=== PATIENT | female | born 1950 | race Caucasian/White ===

== ENCOUNTER → 2021-06-03 15:14 | Outpatient (CLI) | payer MEDICARE, SELFPAY | PROVIDERS: Visit Provider Physician Assistant | DX: L02.91 Cutaneous abscess, unspecified (principal) | CPT/HCPCS: 87070; 87075; 87077; 87147; 87186; 87205 ==

== ENCOUNTER 2022-08-26 12:41 | Emergency (ER) | payer OTHER, SELFPAY ==
[2022-08-26] VITALS (12 sets, daily range): BP systolic 130–207; BP diastolic 72–98; PULSE 18–82; RESP 12–98; TEMP 37; O2SAT 95–98; BMI 25.8
--- NOTE | 2022-08-26 13:08 | DI.CT.S_ITS ---
PROCEDURE: CT HEAD/BRAIN WO CON INDICATIONS: severe HTN and weakness TECHNIQUE: Noncontrast 4.5 mm thick angled axial sections acquired from the foramen magnum to the vertex, with coronal and sagittal reformats. For radiation dose reduction, the following was used: automated exposure control, adjustment of mA and/or kV according to patient size. COMPARISON: [facility], CR, XR CHEST 1V, 08/26/2022, 13:23. [facility], CT, CT ANGIO CHEST ABDOMEN PELVIS, 08/26/2022, 13:15. FINDINGS: Image quality: Excellent. CSF spaces: Basal cisterns are patent. No extra-axial fluid collections. The ventricles are symmetric in size and shape. Brain: No intracranial bleeds or masses. There is cerebral volume loss for age, with resultant ventricular and sulcal prominence. There are periventricular and deep white matter chronic small vessel ischemic changes. There is intracranial internal carotid artery atherosclerosis. Skull and face: Calvarium and visualized facial bones appear intact, without suspicious lesions. Sinuses: Visualized sinuses and mastoids are clear. IMPRESSION: Noncontrast head CT within normal limits for age. Dictated by: Martinez Anguiano M.D. on 08/26/2022 at 12:53 Approved by: Martinez Anguiano M.D. on 08/26/2022 at 12:55
--- NOTE | 2022-08-26 13:08 | DI.CT.S_ITS ---
PROCEDURE: CT ANGIO CHEST ABDOMEN PELVIS INDICATIONS: chest pain and HTN TECHNIQUE: Precontrast 5 mm thick sections acquired from the lung apices to the iliac crests. After the administration of intravenous contrast, 2.5 mm thick sections again acquired from the lung apices to the iliac crests. Maximum intensity projection (MIP) oblique sagittal and coronal reformats were then acquired. For radiation dose reduction, the following was used: automated exposure control. COMPARISON: None. FINDINGS: Image quality: Excellent. AORTA: No acute aortic syndrome. No aortic dissection. Ascending aorta measures 3.4 cm. No pulmonary embolism. CHEST: Lungs and pleura: Right middle lobe pulmonary nodule measuring 0.8 x 0.5 cm, (4/236). Left lower lobe calcified granuloma. Minimal atelectasis or scarring. No consolidation. Airways are clear. No pleural effusions or pneumothorax. Mediastinum: Heart size is normal. No pericardial effusion. No mediastinal or hilar adenopathy by size criteria. Central pulmonary arteries are normal in size. Trace fluid in the distal esophagus. Esophagus is normal in caliber. No hiatal hernias. Bones and chest wall: No axillary adenopathy by size criteria. Tiny left thyroid nodule. No suspicious bony lesions. Prior left-sided rib fractures. No vertebral body compression fractures. ABDOMEN: Vasculature: Celiac trunk and mesenteric arteries are patent. Renal arteries are also patent. Solid organs: Liver is normal in size. Hypodensity in the right lobe of the liver measuring 1.5 x 1.1 cm, (3/164). Gallbladder is unremarkable. Biliary system is non dilated. Pancreas enhances normally. Spleen is normal in size and enhancement. No adrenal nodules. Both kidneys are normal in size and enhancement, without hydronephrosis. Nonobstructing left kidney stone measuring 0.4 cm. Peritoneum and bowel: No free fluid or air. Bowel loops are normal in caliber and wall thickness. Diverticulosis. Normal appendix. Nodes and vessels: No retroperitoneal or mesenteric adenopathy by size criteria. Inferior vena cava is normal in morphology. Miscellaneous: No ventral hernias. PELVIS: Genitourinary: Bladder wall thickness is normal. No stone. Anteverted uterus. Miscellaneous: No inguinal hernias or adenopathy. No ventral hernias. Bones: No suspicious bony lesions. No vertebral body compression fractures. IMPRESSION: 1. No aortic dissection. No pulmonary embolism. 2. No acute airspace opacity. Right middle lobe pulmonary nodule measuring 0.7 cm mean diameter. 3. Indeterminate hypodensity at the dome of the liver. This could be further characterized with a liver MRI with IV contrast. 4. No small bowel obstruction. No free fluid. 5. Diverticulosis. Small nonobstructing left kidney stone. Dictated by: Kavin Gallagher M.D. on 08/26/2022 at 14:06 Approved by: Kavin Gallagher M.D. on 08/26/2022 at 14:19
--- NOTE | 2022-08-26 13:08 | DI.RAD.S_ITS ---
PROCEDURE: XR CHEST 1V INDICATIONS: chest pain TECHNIQUE: One view of the chest was acquired. COMPARISON: [facility], CT, CT HEAD/BRAIN WO CON, 08/26/2022, 13:15. [facility], CT, CT ANGIO CHEST ABDOMEN PELVIS, 08/26/2022, 13:15. FINDINGS: Surgical changes and devices: None. Lungs and pleura: Lungs are clear. No pleural effusions or pneumothorax. Mediastinum: Mediastinal contours appear normal. Heart size is normal. Bones and chest wall: No suspicious bony lesions. Overlying soft tissues appear unremarkable. IMPRESSION: Unremarkable portable chest. Dictated by: Martinez Anguiano M.D. on 08/26/2022 at 12:57 Approved by: Martinez Anguiano M.D. on 08/26/2022 at 12:58
[2022-08-26 13:52] LABS: Add Manual Diff / Slide Review NO; Basophils Absolute Auto 0 /uL (0-100); Basophils Percent Auto 0.7 % (0-2); Eosinophils Absolute Auto 100 /uL (0-450); Eosinophils Percent Auto 1.6 % (2-4); Hematocrit 44.2 % (36-46); Hemoglobin 14.7 g/dL (12.0-16.0); Lymphocytes Absolute Auto 1800 /uL (1100-4500); Lymphocytes Percent Auto 24.2 % (25-40); Mean Corpuscular HGB Conc 33.2 % (30-36); Mean Corpuscular Hemoglobin 32.5 PG (26-34); Monocytes Absolute Auto 700 /uL (0-900); Monocytes Percent Auto 9.1 % (3-14); Neutrophils Absolute Auto 4800 /uL (1500-7000); Neutrophils Percent Auto 64.4 % (50-75); Platelet Count 265 X10^3/uL (150-400); Red Blood Cell Count 4.52 X10^6/uL (4.0-5.2); Red Cell Distribution Width 13.9 % (11.6-14.8); White Blood Cell Count 7.5 X10^3/uL (4.5-11.0)
[2022-08-26 14:09] LABS: Prothrombin Time 11.9 SECONDS (10.1-12.7)
--- NOTE | 2022-08-26 14:11 | ED_ITS ---
HPI - Chest Pain General Chief Complaint: Chest Pain Stated Complaint: chest pain/weak Time Seen by Provider: 08/26/22 12:58 Source: patient Mode of arrival: Ambulatory Limitations: no limitations History of Present Illness HPI narrative: Patient is a 72-year-old female with history of hyperlipidemia presenting today with chest discomfort and weakness. She says she had chest discomfort that woke her from her sleep this morning. It radiated all up and down her sternum of. He went through to her back. She could not get quite comfortable. She then got up and felt like her legs were extremely weak. She has been lightheaded overall not feeling great this morning. She denies any shortness of breath with ex ertion. She denies chest pain with exertion. She feels like her chest discomfort is gone now no overall just feels weak. She has no numbness or tingling. No abdominal pain nausea vomiting or fevers. She is noted to be extremely hypertensive with a systolic in the 200 she is not taking any blood pressure medications and has never had a problem hypertension in the past. Related Data Allergies Allergy/AdvReac Type Severity Reaction Status Date / Time No Known Drug Allergies Allergy Verified 08/26/22 13:05 Review of Systems Review of Systems Narrative: GENERAL: Denies chills, fatigue, malaise, fever, sweats, travel HEENT: Denies sinus pain, ear pain, sore throat, difficulty swallowing, neck pain RESPIRATORY: Denies dyspnea, cough, wheezing, hemoptysis, sputum. CARDIOVASCULAR: See HPI GASTROINTESTINAL: Denies nausea, vomiting, abdominal pain, diarrhea, constipation, melena. : Denies dysuria, frequency, incontinence, hematuria, urinary retention, flank pain. MUSCULOSKELETAL: Denies weakness, joint pain, or bony pain SKIN: No rash, no erythema, no pruritus NEUROLOGIC: Denies weakness, dizziness, headache, numbness, change in speech, confusion PSYCHIATRIC: No concerning psychosocial issues. 12 point review of systems is negative except for those stated above and HPI Patient History Social History Smoking Status: Never smoker Smoking Status: Never smoker alcohol intake frequency: 0-2 drinks per day Substance Use Type: does not use Exam Initial Vital Signs Initial Vital Signs: Vital Signs Pulse Rate 74 08/26/22 12:54 Respiratory Rate 14 08/26/22 12:54 Pulse Oximetry 98 08/26/22 12:54 GENERAL: Alert pleasant 72-year-old female and in no acute distress. HEENT: Head atraumatic,EOMI, pupils reactive, face symmetric, moist mucous membranes CARDIOVASCULAR: Regular rate and rhythm without murmurs, rubs or gallops. RESPIRATORY: Breath sounds equal bilaterally, no wheezes rales or rhonchi. ABDOMEN: Soft, nontender. Normoactive bowel sounds all 4 quadrants. No guarding or rebound. EXTREMITIES: Normal range of motion, no clubbing or edema. Neurovascularly intact NEUROLOGICAL: Alert and oriented x4.Normal gait and speech. Technology Analyst strength equal bilaterally good [id number] bilaterally good [id number] no drift in any extremities face is symmetric sensation and extremities to light touch is equal bilaterally no facial droop SKIN: Warm, dry, no laceration, no petechiae, no rashes or lesions. Course Orders Ordered: ED Orders 08/26/22 13:02 EKG-12 Lead Stat 08/26/22 13:08 CT angio chest abdomen pelvis Stat CT head/brain wo con Stat XR chest 1V Stat 08/26/22 13:40 Complete Blood Count AUTO DIFF Stat Comprehensive Metabolic Panel Stat Lipase Stat NT-proBNP (BNP-Adult 18+) Stat Partial Thromboplastin Time Stat Prothrombin Time INR Stat Troponin & CK Cardiac Panel Stat 08/26/22 15:05 Trop I [Troponin I] Stat 08/26/22 15:16 Urine Culture Stat Urine Microscopic Stat Discontinued Medications Labetalol HCl (Labetalol 20 Mg/4 Ml Syringe) 10 mg IV NOW ONE Stop: 08/26/22 14:39 Vital Signs Vital signs: Vital Signs - 8 hr 08/26/22 13:00 08/26/22 12:54 08/26/22 13:00 Temperature 98.6 F Pulse Rate 18 L 74 74 Respiratory Rate 98 H 14 16 Blood Pressure 202/98 H Pulse Oximetry 98 98 97 Oxygen Delivery Method Room Air 08/26/22 13:06 08/26/22 13:06 08/26/22 13:37 Temperature Pulse Rate 81 82 Respiratory Rate 24 18 Blood Pressure 207/98 H Pulse Oximetry 97 98 Oxygen Delivery Method 08/26/22 14:00 08/26/22 14:38 08/26/22 14:39 Temperature Pulse Rate 66 69 Respiratory Rate 14 Blood Pressure 172/83 H Pulse Oximetry 98 96 Oxygen Delivery Method 08/26/22 14:39 08/26/22 14:40 08/26/22 14:40 Temperature Pulse Rate 68 74 Respiratory Rate 14 17 Blood Pressure 182/88 H Pulse Oximetry 97 97 Oxygen Delivery Method 08/26/22 15:00 08/26/22 15:00 08/26/22 15:01 Temperature Pulse Rate 65 Respiratory Rate 12 Blood Pressure 152/74 H 157/74 H Pulse Oximetry 97 Oxygen Delivery Method 08/26/22 15:01 08/26/22 15:20 08/26/22 15:20 Temperature Pulse Rate 66 66 Respiratory Rate 16 14 Blood Pressure 144/79 H Pulse Oximetry 97 96 Oxygen Delivery Method 08/26/22 16:25 Temperature Pulse Rate 68 Respiratory Rate 18 Blood Pressure 130/72 Pulse Oximetry 95 Oxygen Delivery Method Room Air MDM - Chest Pain Lab Data Result diagrams: 08/26/22 13:40 08/26/22 13:40 Labs: Lab Results 08/26/22 08/26/22 08/26/22 Range/Units 13:40 13:40 13:40 WBC 7.5 (4.5-11.0) X10^3/uL RBC 4.52 (4.0-5.2) X10^6/uL Hgb 14.7 (12.0-16.0) g/dL Hct 44.2 (36-46) % MCV 98.0 (80-100) fL MCH 32.5 (26-34) PG MCHC 33.2 (30-36) % RDW 13.9 (11.6-14.8) % Plt Count 265 (150-400) X10^3/uL Neut % (Auto) 64.4 (50-75) % Lymph % (Auto) 24.2 L (25-40) % Barnes % (Auto) 9.1 (3-14) % Eos % (Auto) 1.6 L (2-4) % Baso % (Auto) 0.7 (0-2) % Neut # (Auto) 4800 (3902-0784) /uL Lymph # (Auto) 1800 (3060-8733) /uL Barnes # (Auto) 700 (0-900) /uL Eos # (Auto) 100 (0-450) /uL Baso # (Auto) 0 (0-100) /uL PT 11.9 (10.1-12.7) SECONDS INR 1.0 (0.9-1.3) APTT 28 (26-36) SECONDS Sodium 136 L (137-145) mmol/L Potassium 4.0 (3.4-5.1) mmol/L Chloride 99 (98-107) mmol/L Carbon Dioxide 31 (22-32) mmol/L BUN 13 (7-17) mg/dL Creatinine 0.72 (0.52-1.04) mg/dL Estimated GFR > 60 (>60) mL/min BUN/Creatinine Ratio 18.1 (6-22) Glucose 93 (80-110) mg/dL Calcium 9.8 (8.4-10.2) mg/dL Total Bilirubin 0.6 (0.2-1.3) mg/dL AST 27 (14-36) IU/L ALT 22 (<35) IU/L Alkaline Phosphatase 55 (38-126) U/L Total Creatine Kinase 36 (30-135) U/L CK-MB (CK-2) TNP CK-MB (CK-2) Rel Index TNP Troponin I < 0.012 (0.01-0.034) ng/mL NT-Pro-B Natriuret Pep 143 H (<125) pg/mL Total Protein 6.7 (6.3-8.2) g/dL Albumin 3.9 (3.5-5.0) g/dL Globulin 2.8 (1.7-4.1) g/dL Albumin/Globulin Ratio 1.4 (1.0-2.8) Lipase 72 (23-300) U/L Urine RBC (0-5/HPF) Urine WBC (0-5/HPF) Amorphous Sediment Urine Bacteria (None) Ur Culture Indicated? 08/26/22 08/26/22 Range/Units 15:05 15:16 WBC (4.5-11.0) X10^3/uL RBC (4.0-5.2) X10^6/uL Hgb (12.0-16.0) g/dL Hct (36-46) % MCV (80-100) fL MCH (26-34) PG MCHC (30-36) % RDW (11.6-14.8) % Plt Count (150-400) X10^3/uL Neut % (Auto) (50-75) % Lymph % (Auto) (25-40) % Barnes % (Auto) (3-14) % Eos % (Auto) (2-4) % Baso % (Auto) (0-2) % Neut # (Auto) (0882-4864) /uL Lymph # (Auto) (7779-9987) /uL Barnes # (Auto) (0-900) /uL Eos # (Auto) (0-450) /uL Baso # (Auto) (0-100) /uL PT (10.1-12.7) SECONDS INR (0.9-1.3) APTT (26-36) SECONDS Sodium (137-145) mmol/L Potassium (3.4-5.1) mmol/L Chloride (98-107) mmol/L Carbon Dioxide (22-32) mmol/L BUN (7-17) mg/dL Creatinine (0.52-1.04) mg/dL Estimated GFR (>60) mL/min BUN/Creatinine Ratio (6-22) Glucose (80-110) mg/dL Calcium (8.4-10.2) mg/dL Total Bilirubin (0.2-1.3) mg/dL AST (14-36) IU/L ALT (<35) IU/L Alkaline Phosphatase (38-126) U/L Total Creatine Kinase (30-135) U/L CK-MB (CK-2) CK-MB (CK-2) Rel Index Troponin I < 0.012 (0.01-0.034) ng/mL NT-Pro-B Natriuret Pep (<125) pg/mL Total Protein (6.3-8.2) g/dL Albumin (3.5-5.0) g/dL Globulin (1.7-4.1) g/dL Albumin/Globulin Ratio (1.0-2.8) Lipase (23-300) U/L Urine RBC 0-1/hpf (0-5/HPF) Urine WBC None seen (0-5/HPF) Amorphous Sediment 2+ Urine Bacteria None seen (None) Ur Culture Indicated? Culture not indicate Urine Dip Bedside Urine Glucose Negative Bedside Urine Bilirubin - Negative Bedside Urine Ketone - Negative Urine Specific Jackpot 1.010 Bedside Urine Occult Blood +/- Bedside Urine pH 8.0 Bedside Urine Protein - Negative Bedside Urine Urobilinogen - Negative Bedside Urine Nitrite - Negative Bedside Urine Leukocytes - Negative Esterase Imaging Data CT scan - head: Radiologist's Impression: : Apolonia Carr MR#: [id number] : 1950 Acct:[id number] Age/Sex: 72 / F Date of Service: 08/26/22 Loc: ED Accession Number: [id number] ?? Procedure: CT head/brain wo con Ordering Provider: Ruma Rosenthal D.O. PROCEDURE:? CT HEAD/BRAIN WO CON ? INDICATIONS:? severe HTN and weakness ? TECHNIQUE:? Noncontrast 4.5 mm thick angled axial sections acquired from the foramen magnum to the vertex, with coronal and sagittal reformats.? For radiation dose reduction, the following was used:? automated exposure control, adjustment of mA and/or kV according to patient size.? ? COMPARISON:? [facility], CR, XR CHEST 1V, 08/26/2022, 13:23.? [facility], CT, CT ANGIO CHEST ABDOMEN PELVIS, 08/26/2022, 13:15. ? FINDINGS:? Image quality:? Excellent.? ? CSF spaces:? Basal cisterns are patent.? No extra-axial fluid collections.? The ventricles are symmetric in size and shape.? ? Brain:? No intracranial bleeds or masses.? There is cerebral volume loss for age, with resultant ventricular and sulcal prominence.? There are periventricular and deep white matter chronic small vessel ischemic changes.? There is intracranial internal carotid artery atherosclerosis.? ? Skull and face:? Calvarium and visualized facial bones appear intact, without suspicious lesions.? ? Sinuses:? Visualized sinuses and mastoids are clear.? ? ? IMPRESSION:? Noncontrast head CT within normal limits for age. ? ? Dictated by: Martinez Anguiano M.D. on 08/26/2022 at 12:53 ?? CT scan - abdomen/pelvis: Radiologist's Impression: Apolonia Carr MR#: [id number] : 1950 Acct:[id number] Age/Sex: 72 / F Date of Service: 08/26/22 Loc: ED Accession Number: [id number] ?? Procedure: CT angio chest abdomen pelvis Ordering Provider: Ruma Rosenthal D.O. PROCEDURE:? CT ANGIO CHEST ABDOMEN PELVIS ? INDICATIONS:? chest pain and HTN ? TECHNIQUE:? Precontrast 5 mm thick sections acquired from the lung apices to the iliac crests.? After the administration of intravenous contrast, 2.5 mm thick sections again acquired from the lung apices to the iliac crests.? Maximum intensity projection (MIP) oblique sagittal and coronal reformats were then acquired.? For radiation dose reduction, the following was used:? automated exposure control.? ? COMPARISON:? None. ? FINDINGS:? Image quality:? Excellent.? ? AORTA:? No acute aortic syndrome.? No aortic dissection.? Ascending aorta measures 3.4 cm. ? No pulmonary embolism.? ? CHEST:? Lungs and pleura:? Right middle lobe pulmonary nodule measuring 0.8 x 0.5 cm, (4/236).? Left lower lobe calcified granuloma.? Minimal atelectasis or scarring.? No consolidation. ?Airways are clear.? No pleural effusions or pneumothorax.? Mediastinum:? Heart size is normal.? No pericardial effusion.? No mediastinal or hilar adenopathy by size criteria.? Central pulmonary arteries are normal in size.? Trace fluid in the distal esophagus.? Esophagus is normal in caliber.? No hiatal hernias.? ? Bones and chest wall:? No axillary adenopathy by size criteria.? Tiny left thyroid nodule.? No suspicious bony lesions.? Prior left-sided rib fractures.? No vertebral body compression fractures.? ? ? ABDOMEN:? Vasculature:? Celiac trunk and mesenteric arteries are patent.? Renal arteries are also patent.? ? Solid organs:? Liver is normal in size.? Hypodensity in the right lobe of the liver measuring 1.5 x 1.1 cm, (3/164).? Gallbladder is unremarkable.? Biliary system is non dilated.? Pancreas enhances normally.? Spleen is normal in size and enhancement.? No adrenal nodules.? Both kidneys are normal in size and enhancement, without hydronephrosis.? Nonobstructing left kidney stone measuring 0.4 cm.? ? Peritoneum and bowel:? No free fluid or air.? Bowel loops are normal in caliber and wall thickness.? Diverticulosis.? Normal appendix.? ? Nodes and vessels:? No retroperitoneal or mesenteric adenopathy by size criteria.? Inferior vena cava is normal in morphology.? ? Miscellaneous:? No ventral hernias.? ? ? PELVIS:? Genitourinary:? Bladder wall thickness is normal.? No stone.? Anteverted uterus.? ? Miscellaneous:? No inguinal hernias or adenopathy.? No ventral hernias.? ? Bones:? No suspicious bony lesions.? No vertebral body compression fractures.? ? ? IMPRESSION:? 1. No aortic dissection.? No pulmonary embolism. ? 2. No acute airspace opacity.? Right middle lobe pulmonary nodule measuring 0.7 cm mean diameter. ? 3. Indeterminate hypodensity at the dome of the liver.? This could be further characterized with a liver MRI with IV contrast. ? 4. No small bowel obstruction.? No free fluid. ? 5. Diverticulosis.? Small nonobstructing left kidney stone.? Dictated by: Kavin Gallagher M.D. on 08/26/2022 at 14:06 ? ? Approved by: Kavin Gallagher M.D. on 08/26/2022 at 14:19 ? Chest x-ray: Radiologist's Impression: tient: Apolonia Carr MR#: [id number] : 1950 Acct:[id number] Age/Sex: 72 / F Date of Service: 08/26/22 Loc: ED Accession Number: [id number] ?? Procedure: XR chest 1V Ordering Provider: Ruma Rosenthal D.O. PROCEDURE:? XR CHEST 1V ? INDICATIONS:? chest pain ? TECHNIQUE:? One view of the chest was acquired.? ? COMPARISON:? [facility], CT, CT HEAD/BRAIN WO CON, 08/26/2022, 13:15.? [facility], CT, CT ANGIO CHEST ABDOMEN PELVIS, 08/26/2022, 13:15. ? FINDINGS:? ? Surgical changes and devices:? None.? ? Lungs and pleura:? Lungs are clear.? No pleural effusions or pneumothorax.? ? Mediastinum:? Mediastinal contours appear normal.? Heart size is normal.? ? Bones and chest wall:? No suspicious bony lesions.? Overlying soft tissues appear unremarkable.? ? ? IMPRESSION:? ? Unremarkable portable chest. ? ? Dictated by: Martinez Anguiano M.D. on 08/26/2022 at 12:57 ? ? Approved by: Martinez Anguiano M.D. on 08/26/2022 at 12:58 ECG Data Interpretation: Normal sinus rhythm rate 80 p.r. interval 144 QRS [address] changes or T- wave inversions, no priors MDM Narrative Medical decision making narrative: Patient initially comes in with weakness chest pain and severe hypertension. CT angio did not show any dissection all blood work does not show any sign of end- organ damage. She has 2- troponins she has not had any recurrence of chest discomfort. Her blood pressure has come down to 144/79 without any intervention. She has no sign of infection. At this time no indication for admission. I do recommend that she took her blood pressure at. She has a low risk heart score. She is noted have some PVCs on the monitor but likely causing any of her pain. Discharge Plan Departure Patient Disposition: Home Clinical Impression: Atypical chest pain, Asymptomatic PVCs Instructions: DI for Atypical Chest Pain Activity Restrictions/Additional Instructions: *You have been diagnosed with atypical chest *What to do: At this time blood work is overall reassuring. He may require further cardiac testing such as stress test and/or echocardiogram up discussed this with her primary care provider. Please monitor your blood pressure at home check once a day and record. You may need blood pressure medications. *Continue to take medications as directed *Follow up with your primary care provider in 2-3 days or call [phone] *Return to ER if you should have increasing chest pain weakness numbness tingling facial droop difficulty speaking visual changes or any new, worsening or concerning symptoms Referrals: Carline Haro ARNP [Primary Care Provider] - Visit Report Forms: Patient Portal/API
[2022-08-26 14:12] LABS: PTT Partial Thromboplastin Tim 28 SECONDS (26-36)
[2022-08-26 14:14] LABS: Alanine Aminotransferase 22 IU/L (<35); Albumin 3.9 g/dL (3.5-5.0); Albumin Globulin Ratio 1.4 (1.0-2.8); Alkaline Phosphatase 55 U/L (38-126); Aspartate Aminotransferase 27 IU/L (14-36); BUN Creatinine Ratio 18.1 (6-22); Bilirubin Total 0.6 mg/dL (0.2-1.3); Blood Urea Nitrogen 13 mg/dL (7-17); Calcium 9.8 mg/dL (8.4-10.2); Carbon Dioxide 31 mmol/L (22-32); Chloride 99 mmol/L (98-107); Creatine Kinase 36 U/L (30-135); Estimated Glomerular Filt Rate > 60 mL/min (>60); Globulin 2.8 g/dL (1.7-4.1); Glucose 93 mg/dL (80-110); HEMOLYSIS < 15 (0-50); Lipase 72 U/L (23-300); Sodium 136 mmol/L (137-145); Total Protein 6.7 g/dL (6.3-8.2)
[2022-08-26 14:25] LABS: NT-proBNP (BNP-Adult 18+) 143 pg/mL (<125); Troponin I < 0.012 ng/mL (0.01-0.034)
[2022-08-26 15:28] LABS: Amorphous Sediment Urine 2+; Bacteria Urine None Seen; RBC Urine 0-1/HPF (0-5/HPF); WBC Urine None Seen (0-5/HPF)
[2022-08-26 15:37] LABS: Troponin I < 0.012 ng/mL (0.01-0.034)
== END 2022-08-26 16:25 | disposition home or self-care (01) ==
PROVIDERS: Emergency Provider Emergency Medicine; PCP Nurse Practitioner Family
DX: R07.89 Other chest pain (principal); I49.3 Ventricular premature depolarization
CPT/HCPCS: 36415; 70450; 71045; 71275; 74174; 80053; 81003; 81015; 82550; 83690; 83880; 84484; 85025; 85610; 85730; 87086; 93005; 93010; 99283; 99284; Q9967

== ENCOUNTER 2022-12-29 15:39 | Emergency (ER) | payer OTHER, SELFPAY ==
[2022-12-29 16:15] VITALS: BP 156/83; PULSE 77; RESP 16; TEMP 36.6; O2SAT 98; BMI 26.6
[2022-12-29 16:27] LABS: Appearance Urine UA CLEAR; Bilirubin Urine UA NEGATIVE (NEGATIVE); Color Urine UA YELLOW; Glucose Urine UA NEGATIVE (Negative); Ketones Urine UA NEGATIVE (NEGATIVE); Leukocyte Esterase Urine UA NEGATIVE (NEGATIVE); Nitrite Urine UA NEGATIVE (Negative); Occult Blood Urine UA TRACE-INTACT (Negative); Protein Urine UA NEGATIVE (Negative); Specific Gravity Urine UA >=1.030 (1.000-1.035); Urobilinogen Urine UA 0.2 E.U./dL (0.2)
[2022-12-29 16:30] LABS: pH Urine UA 5.5 (4.5-8.0)
--- NOTE | 2022-12-29 16:36 | DI.CT.S_ITS ---
PROCEDURE: CT KIDNEY URETER BLADDER (KUB) INDICATIONS: right flank pain, hematuria TECHNIQUE: Axial sections were acquired from the lung bases to the pubic symphysis. Coronal and sagittal reformats were performed. For radiation dose reduction, the following was used: automated exposure control, adjustment of mA and/or kV according to patient size. COMPARISON: [facility], CT, CT ANGIO CHEST ABDOMEN PELVIS, 08/26/2022, 13:15. FINDINGS: Image quality: Adequate. Lung bases: No pleural effusion URINARY: Redemonstrated non-obstructing stone at the left lower kidney, 5 mm, internal density 388 Hounsfield units. No right-sided urinary stone identified. No hydroureteronephrosis bilaterally. Bladder: Normal wall thickness. No stones. ABDOMEN: Liver: Similar nonspecific hypodensity in hepatic segment 7, not well evaluated on this noncontrast exam. Gallbladder: Unremarkable. Biliary ducts: Unremarkable. Pancreas: Unremarkable. Spleen: Unremarkable. Adrenal Glands: Unremarkable. Stomach and Bowel: No bowel obstruction. Moderate-severe predominantly sigmoid colonic diverticulosis without evidence of acute diverticulitis. No evidence of acute appendicitis. Peritoneum: No abnormal intraperitoneal fluid. No free air. Abdominal Nodes: No enlarged retroperitoneal or mesenteric lymph nodes. Vessels: Aorta and inferior vena cava are normal in size. PELVIS: Pelvic Organs: Unremarkable CT appearance. Pelvic Nodes: Unremarkable. Bones: Multilevel degenerative change of the visualized spine. IMPRESSION: Redemonstrated non-obstructing stone at the left inferior kidney. No obstructing urinary stone or hydroureteronephrosis. Dictated by: Miguel Ángel Mack M.D. on 12/29/2022 at 17:25 Approved by: Miguel Ángel Mack M.D. on 12/29/2022 at 17:36
[2022-12-29 16:42] LABS: Bacteria Urine None Seen; Culture Indicated Urine Cult Not Indicated; RBC Urine 1-5/HPF (0-5/HPF); Squamous Epithelial Cell Urine None Seen (0-5/HPF); WBC Urine None Seen (0-5/HPF)
[2022-12-29 17:04] LABS: Add Manual Diff / Slide Review NO; Basophils Absolute Auto 100 /uL (0-100); Basophils Percent Auto 0.6 % (0-2); Eosinophils Absolute Auto 100 /uL (0-450); Eosinophils Percent Auto 0.9 % (2-4); Hematocrit 43.5 % (36-46); Hemoglobin 14.8 g/dL (12.0-16.0); Lymphocytes Absolute Auto 1700 /uL (1100-4500); Lymphocytes Percent Auto 19.9 % (25-40); Mean Corpuscular Hemoglobin 32.6 PG (26-34); Mean Corpuscular Volume 95.8 fL (80-100); Monocytes Absolute Auto 700 /uL (0-900); Monocytes Percent Auto 7.7 % (3-14); Neutrophils Absolute Auto 6100 /uL (1500-7000); Neutrophils Percent Auto 70.9 % (50-75); Platelet Count 276 X10^3/uL (150-400); Red Blood Cell Count 4.53 X10^6/uL (4.0-5.2); Red Cell Distribution Width 13.2 % (11.6-14.8); White Blood Cell Count 8.6 X10^3/uL (4.5-11.0)
[2022-12-29 17:18] LABS: Alanine Aminotransferase 28 IU/L (<35); Albumin 4.3 g/dL (3.5-5.0); Albumin Globulin Ratio 1.5 (1.0-2.8); Alkaline Phosphatase 59 U/L (38-126); Aspartate Aminotransferase 31 IU/L (14-36); BUN Creatinine Ratio 23.1 (6-22); Bilirubin Total 0.4 mg/dL (0.2-1.3); Blood Urea Nitrogen 18 mg/dL (7-17); Calcium 9.9 mg/dL (8.4-10.2); Carbon Dioxide 30 mmol/L (22-32); Chloride 102 mmol/L (98-107); Estimated Glomerular Filt Rate > 60 mL/min (>60); Globulin 2.8 g/dL (1.7-4.1); Glucose 96 mg/dL (80-110); HEMOLYSIS < 15 (0-50); Sodium 139 mmol/L (137-145); Total Protein 7.1 g/dL (6.3-8.2)
--- NOTE | 2022-12-29 17:42 | ED.ABDPAIN ---
HPI - Abdominal Pain General Chief Complaint: Abdominal Pain Stated Complaint: Rt side ABD pain Time Seen by Provider: 12/29/22 16:36 Source: patient Mode of arrival: Ambulatory History of Present Illness HPI narrative: 72-year-old female nonsmoker with noncontributory chronic medical history presents with a chief complaint of a relatively sudden onset and pinpoint region of pain in her right groin that started about an hour prior to her arrival. She states that it resolved when she got out of her car to come see us. She denies any obvious provocation or palliation but does state that it seemed to intensify on occasion without any particular reason. She feels some chills and a bit unwell but is very relieved that her symptoms have essentially disappeared. She denies any nausea or vomiting. She has no dysuria, frequency or urgency. Related Data Allergies Allergy/AdvReac Type Severity Reaction Status Date / Time doxycycline Allergy Dizziness Verified 12/29/22 16:15 Review of Systems Review of Systems Narrative: GENERAL: Denies chills, fatigue, malaise, fever, sweats. HEENT: Denies sinus pain, ear pain, sore throat, difficulty swallowing, dizziness. RESPIRATORY: Denies dyspnea, cough, wheezing, hemoptysis, sputum. CARDIOVASCULAR: Denies chest pain, palpitations, orthopnea, edema, GASTROINTESTINAL: See HPI : See HPI MUSCULOSKELETAL: denies weakness, joint pain, or bony pain SKIN: Denies rash, skin lesions, or other NEUROLOGIC: Denies weakness, headache, numbness, change in speech, confusion, seizures, incoordination. PSYCHIATRIC: No concerning psychosocial issues. 12 point review of systems is negative except for those stated above Patient History Social History Smoking Status: Never smoker Smoking Status: Never smoker alcohol intake frequency: holidays/special occasions only Substance Use Type: does not use Exam Narrative Exam Narrative: GENERAL: [72] year old patient appears stated age. Well-developed patient, in mild distress. HEAD: Atraumatic. Normocephalic. EYES: Pupils equal round and reactive. Extraocular motions intact. No scleral icterus. No injection or drainage. ENT: Nose without bleeding, purulent drainage. Throat without erythema, tonsillar hypertrophy or exudate. Airway patent. NECK: Trachea midline. Non tender CARDIOVASCULAR: Regular rate and rhythm without murmurs, gallops, or rubs. RESPIRATORY: Clear to auscultation. Breath sounds equal bilaterally. No wheezes, rales, or rhonchi. GASTROINTESTINAL: Abdomen soft, non-tender, nondistended. EXTREMITIES: No edema or joint tenderness. BACK: Nontender without deformity or crepitance. No flank tenderness. NEURO: AOx3. SKIN: No rash or erythema of visible areas Initial Vital Signs Initial Vital Signs: Vital Signs Temperature 98 F 12/29/22 16:15 Pulse Rate 77 12/29/22 16:15 Respiratory Rate 16 12/29/22 16:15 Blood Pressure 156/83 H 12/29/22 16:15 Pulse Oximetry 98 12/29/22 16:15 Oxygen Delivery Method 12/29/22 16:15 Course Orders Ordered: Discontinued Medications Sodium Chloride (Normal Saline 0.9%) 1,000 mls @ 1,000 mls/hr IV BOLUS ONE Stop: 12/29/22 17:35 Last Admin: 12/29/22 18:40 Dose: Not Given Documented By: MANISHA Vital Signs Vital signs: Vital Signs - 8 hr 12/29/22 16:15 Temperature 98 F Pulse Rate 77 Respiratory Rate 16 Blood Pressure 156/83 H Pulse Oximetry 98 Oxygen Delivery Method Room Air MDM - Abdominal Pain Lab Data 12/29/22 16:50 12/29/22 16:50 Labs: Lab Results 12/29/22 12/29/22 12/29/22 Range/Units 15:55 16:50 16:50 WBC 8.6 (4.5-11.0) X10^3/uL RBC 4.53 (4.0-5.2) X10^6/uL Hgb 14.8 (12.0-16.0) g/dL Hct 43.5 (36-46) % MCV 95.8 (80-100) fL MCH 32.6 (26-34) PG MCHC 34.0 (30-36) % RDW 13.2 (11.6-14.8) % Plt Count 276 (150-400) X10^3/uL Neut % (Auto) 70.9 (50-75) % Lymph % (Auto) 19.9 L (25-40) % [place] % (Auto) 7.7 (3-14) % Eos % (Auto) 0.9 L (2-4) % Baso % (Auto) 0.6 (0-2) % Neut # (Auto) 6100 (6753-0118) /uL Lymph # (Auto) 1700 (1834-6255) /uL [place] # (Auto) 700 (0-900) /uL Eos # (Auto) 100 (0-450) /uL Baso # (Auto) 100 (0-100) /uL Sodium 139 (137-145) mmol/L Potassium 4.0 (3.4-5.1) mmol/L Chloride 102 (98-107) mmol/L Carbon Dioxide 30 (22-32) mmol/L BUN 18 H (7-17) mg/dL Creatinine 0.78 (0.52-1.04) mg/dL Estimated GFR > 60 (>60) mL/min BUN/Creatinine Ratio 23.1 H (6-22) Glucose 96 (80-110) mg/dL Calcium 9.9 (8.4-10.2) mg/dL Total Bilirubin 0.4 (0.2-1.3) mg/dL AST 31 (14-36) IU/L ALT 28 (<35) IU/L Alkaline Phosphatase 59 (38-126) U/L Total Protein 7.1 (6.3-8.2) g/dL Albumin 4.3 (3.5-5.0) g/dL Globulin 2.8 (1.7-4.1) g/dL Albumin/Globulin Ratio 1.5 (1.0-2.8) Urine Color Yellow Urine Appearance Clear Urine pH 5.5 (4.5-8.0) Ur Specific [place] >=1.030 H (1.000-1.035) Urine Protein Negative (Negative) Urine Glucose (UA) Negative (Negative) g/dL Urine Ketones Negative (NEGATIVE) Urine Occult Blood Trace-intact (Negative) Urine Nitrate Negative (Negative) Urine Bilirubin Negative (NEGATIVE) Urine Urobilinogen 0.2 (0.2) E.U./dL Ur Leukocyte Esterase Negative (NEGATIVE) Urine RBC 1-5/hpf (0-5/HPF) Urine WBC None seen (0-5/HPF) Ur Squamous Epith Cells None seen (0-5/HPF) Urine Bacteria None seen (None) Ur Culture Indicated? Cult not indicated Point of care testing: Urine Dip Bedside Urine Glucose Negative Bedside Urine Bilirubin - Negative Bedside Urine Ketone - Negative Urine Specific [place] 1.030 Bedside Urine Occult Blood +/- Bedside Urine pH 5 Bedside Urine Protein - Negative Bedside Urine Urobilinogen - Negative Bedside Urine Nitrite - Negative Bedside Urine Leukocytes - Negative Esterase Imaging Data CT scan - abdomen/pelvis: Radiologist's Impression: Nonobstructing left-sided kidney stone in the left inferior kidney otherwise no stone or hydroureteronephrosis MDM Narrative Medical decision making narrative: CC: 72-year-old female with brief episode of right groin pain, somewhat colicky in nature resolved prior to arrival Complicating co-morbidities: Age Data collected from: Patient Medical records reviewed: Prior records noted in EMR Differential considered, but not limited to: Kidney stone vs. MSK vs. UTI vs. bowel obstruction vs. other Exam documented above, pertinent findings include: No current pain, abdomen soft Lab Test results independently reviewed as above. Pertinent findings: hematuria on POC urine, serum labs unremarkable Imaging studies independently reviewed: CT KUB without obvious abnormality to explain her episode of pain Treatments: saline bolus Re-evaluations: continues to be asymptomatic Discussion: patient with brief R groin pain resolved prior to arrival in the absence of other symptoms. Mild hematuria, history of stones raises the question of possible stone. Labs reassuring, no stone or other abnormality on CT. Pain well controlled and tolerating orals. Patient with reassuring history, exam and labs. Though diagnosis is not clear there is low likelihood any significant intra-abdominal pathology that would require specific or immediate intervention. Lengthy discussion at the bedside with patient and , they both understand and agree with the diagnosis and plan. Return precautions and importance of follow-up recognized Disposition: see below, along with detailed discharge instructions that have been reviewed with patient as well as indications for ED re-evaluation and additional outpatient follow up Discharge Plan Departure Patient Disposition: Home Clinical Impression: Pain in the groin Instructions: Acute Abdominal Pain Activity Restrictions/Additional Instructions: *You have been diagnosed with [Right groin pain, resolved. As we discussed your history, physical, labs and imaging are very reasurring. ] *What to do: *Please continue to take your regular medications as directed. *Please follow up with your primary care provider in 2-3 days, call for an appointment. Let them know you were seen in the Emergency Department and that we ask that you be seen in follow up. We will electronically transmit a record of today's note if your PCP is in our system *If you do not have a primary care provider please contact the [facility] Resource line at [phone]. They will ask some questions about your medical history and help get you set up with a doctor in the community. *Return to Emergency Department if you should have any new, worsening or concerning symptoms, such as [fever greater than 101 F, shaking chills, worsening pain, persistent vomiting or other bothersome symptoms] Referrals: Carline Haro ARNP [Primary Care Provider] - Stand Alone Forms: Patient Portal/API
[2022-12-29 18:39] VITALS: BP 202/100; PULSE 80; RESP 18; O2SAT 98
== END 2022-12-29 18:57 | disposition home or self-care (01) ==
PROVIDERS: Emergency Provider Emergency Medicine; PCP Nurse Practitioner Family
DX: R10.9 Unspecified abdominal pain (principal)
CPT/HCPCS: 36415; 74176; 80053; 81001; 81003; 85025; 99283; 99284

== ENCOUNTER 2024-01-18 06:05 | Day surgery (SDC) | payer OTHER, SELFPAY ==
[2023-12-26 10:55] VITALS: BMI 27.5
[2024-01-18] VITALS (10 sets, daily range): BP systolic 111–188; BP diastolic 60–114; PULSE 59–96; RESP 12–16; TEMP 36.1–37.2; O2SAT 93–98; BMI 27.5
[2024-01-18] MEDS: LACTATED RINGERS 1,000 ML 42 ML IV ×2 (07:03→09:27)
[2024-01-18] MEDS: VANCOMYCIN 1,000 MG/200 ML PIGGYBACK 200 MG IV (07:08)
[2024-01-18] MEDS: ACETAMINOPHEN 325 MG TABLET 975 MG PO (07:08)
--- NOTE | 2024-01-18 07:17 | PM.HP.1 ---
History of Present Illness History of Present Illness Date Patient Seen: 01/18/24 Time Patient Seen: 07:17 Chief complaint: Right knee Narrative: The patient is a 73-year-old female with end-stage valgus knee arthritis. She has significant ongoing worsening chronic right knee pain. She is pain on a daily basis interferes with her ability to walk. Her right knee is much worse than her left. She is tried and failed conservative treatment for her knees including anti-inflammatories, activity modification and physical therapy. She is restricted range of motion ongoing pain. She has a recent history of femoral hernia repairs in October of 2023. She has not having groin pain at this point. She is physically active and her knee pain is interfering with her lifestyle. She has a sense of instability in her right knee and progressive valgus deformity. She has a family history of malignant hyperthermia in her aunt. This patient has had over 11 surgeries without any issues. She has end-stage right knee arthritis that is failed conservative treatment. She is a candidate for total knee arthroplasty. She previous outside surgeons at [facility] and Dr. Ott and was getting ready for knee arthroplasty but there were delays or custodial the interfered with her plans. She would like to proceed with total knee arthroplasty. She does not smoke she does not have diabetes or take any blood thinners. In early December she had the flu but is recovered. [facility] Medical History Family history of malignant hyperthermia Osteopenia Cellulitis Genital herpes Osteoarthritis History of kidney stones Edwards's esophagus (08/2023) GERD (gastroesophageal reflux disease) HLD (hyperlipidemia) Macular degeneration History of COVID-19 (08/2023) Surgical History History of ankle surgery (2015) Hx of tonsillectomy Hx of lithotripsy (2007) Hx of dilation and curettage History of hernia surgery History of section Hx of bilateral cataract extraction Social History household members: spouse Smoking Status: Never smoker alcohol intake: current Meds Home Medications and Allergies Home Medications Medication Instructions Recorded Confirmed Type atorvastatin 10 mg tablet 10 mg PO BEDTIME 12/26/23 01/18/24 History cholecalciferol (vitamin D3) 50 50 mcg PO DAILY 12/26/23 01/18/24 History mcg (2,000 unit) capsule (Vitamin D3) omeprazole 20 mg tablet,delayed 20 mg PO BID 12/26/23 01/18/24 History release valacyclovir 500 mg tablet 1,000 mg PO BID PRN Flare up 12/26/23 01/18/24 History vit C 250 mg-vit E 90 mg-zinc 40 1 tab PO BID 12/26/23 01/18/24 History mg-copper 1 [id number] capsule (PreserVision AREDS-2) Allergies Allergy/AdvReac Type Severity Reaction Status Date / Time doxycycline AdvReac Severe Dizziness Verified 01/18/24 06:42 Review of Systems Review of Systems Narrative: No chest pain no shortness of breath no gastric irritation or fears. ROS: Yes All systems reviewed with the patient and are negative except as otherwise documented Exam Vital Signs (past 8 hours): The patient noted to be hypertensive in preop systolic in the 190s. Previous blood pressures measured in [facility] were systolics in the 150s and 160s Narrative Exam Narrative: Alert and oriented female in no acute distress. Heart regular rate and rhythm. Lungs clear. Full weight-bearing no assistive devices. Right lower extremity demonstrates mild valgus alignment range of motion 0-130. Good strength and stability with no swelling atrophy or effusion. Medial and lateral joint line pain. Crepitus with flexion and extension. No erythema no signs of infection. Palpable distal pulses. Const General: cooperative Objective Imaging Knee x-ray previous: My impression: Previous knee x-rays demonstrate bilateral knee arthritis with valgus deformity. Kellgren Rachid 4 grade 4 lateral compartment joint space narrowing and subchondral sclerosis with osteophyte formation Assessment & Plan Assessment and plan (1) Arthritis of right knee: Status: Acute Plan The patient has end-stage valgus right knee arthritis. She has exhausted conservative treatment. She has a candidate for total knee arthroplasty. Her labs I have been reviewed. EKG within normal limits. Her surgery was indicated for the hospital due to her family history of malignant hyperthermia. The patient has had 11 surgeries without an issue with anesthesia. She recently had a hernia surgery in [place] in October of 2023. She would like a same-day discharge for home after total knee arthroplasty. She has postoperative physical therapy set up. She has a walker at home. She is received her postoperative medications these are oxycodone, ketorolac and Zofran. She also has access to [id number] stool softeners and Pepcid. She will take aspirin 81 mg enteric-coated twice a day for 6 weeks after surgery for DVT prophylaxis. She does have a history of MRSA cellulitis her preoperative antibiotic was vancomycin. Quality VTE Deep Vein Thrombosis/Pulmonary Embolism Present on Admission: No
--- NOTE | 2024-01-18 07:18 | SUR.OPER ---
Supine on padded OR bed. Pillow under head, arms secured on padded armboards <90 degree abduction. Safety belt across torso. Non-operative leg secured with tape over blanket over lower leg. Operative leg secured in DeMayo/Beto/Nathe positioner. Foam padded brace at thigh of operative leg.
[2024-01-18] MEDS: TRANEXAMIC ACID 1,000 MG VIAL 1000 MG INJ ×2 (08:00→10:18)
[2024-01-18] MEDS: CEFAZOLIN 2 GM/100 ML PREMIX 100 ML IV (08:15)
[2024-01-18] MEDS: BUPIVACAINE 0.25% (PF) 60 ML, EPINEPHrine 0.15 MG INJ (08:30)
[2024-01-18] MEDS: BUPIVACAINE LIPOSOME 266 MG/20 ML VIAL INJ (08:32)
--- NOTE | 2024-01-18 10:00 | DI.RAD.S_ITS ---
PROCEDURE: XR KNEE RT 1TO2V INDICATIONS: POST OP RIGHT KNEE TECHNIQUE: 2 view(s) of the knee acquired. COMPARISON: None. FINDINGS: Bones: Patient is status post knee joint arthroplasty. Hardware components are in expected positions. Visualized bony structures are intact. Soft tissues: Overlying postoperative changes are noted. IMPRESSION: Expected post-operative appearance of a knee arthroplasty. Dictated by: Eric Rhodes M.D. on 01/18/2024 at 12:10 Approved by: Eric Rhodes M.D. on 01/18/2024 at 12:10
--- NOTE | 2024-01-18 10:31 | P.OP_ITS ---
Operative Date/Time/Diagnoses Date of procedure: 01/18/24 Time of procedure: 08:20 Pre-op diagnosis: Tricompartmental arthritis right knee M17.1 1 Post-op diagnosis: same Procedure & Clinicians Procedure: Total knee arthroplasty right CPT code 56314 Same procedure as scheduled: Yes Indications: The patient is a 73-year-old female with end-stage veji-ty-vhej knee arthritis. The patient has a significant valgus knee arthritis. They have failed conservative treatment with activity modifications, injections, physical therapy and bracing. They has been indicated for total knee replacement. The risks and benefits of the procedure have been discussed with the patient even opportunity to ask questions. The risks of surgery include but are not limited to infection, malunion, nonunion, fracture, loosening, persistence of pain, damage to nerves and blood vessels, need for additional procedures, DVT, PE, cardiopulmonary complications and . The patient expressed a thorough understanding of the risks and benefits of surgery and has elected to proceed. Consent was signed in the office. Her procedure was done in the hospital due to a family history of malignant hyperthermia. Patient also had a remote history of a MRSA cellulitis so preoperative on it back decision was vancomycin. During the operation the services of physician nursing surgical services director were medically indicated and necessary to provide the exposure of the operative site for the surgical procedure and to maintain the limb in a proper position to carry out the procedure safely and efficiently. Without a qualified care team assistant being present this would extend the operative procedure and would have made the procedure more technically difficult to perform. The nursing surgical services director was medically necessary for the proper positioning, retraction and manipulation of the limb, proper exposure, and manipulation of the tissue for implantation implants and closure. Surgeon: Erin Quigley Production Support Supervisor: Lake Mullins Anesthesia Type: Spinal, Peripheral nerve block and Local Operative Notes Findings: Preoperative alignment 7? valgus. Tricompartmental arthritis Tight lateral compartment. Degenerative meniscal tears. Closure Type: primary Specimen(s): none sent Prosthetic devices, grafts, tissues, transplants, or devices: Ott and Nephew journey 2 bcs Femur cobalt chromium size 5 Tibia size 3 Poly 15 mm Patella 32x 7.5 Estimated Blood Loss (mL): 100 Blood products transfused: none Tourniquet time (min): 110 Procedure in detail: Patient was seen in the preoperative area where the patient and site of surgery were identified in the operative knee was marked informed consent confirmed. This was the right knee. Patient received the appropriate preoperative antibiotics this was 1 g of vancomycin and 2 g of Ancef. And other preoperative medications and was taken to the operating room placed on operating table in the supine position. Spinal anesthetic were administered. The operative extremity was then prepped and draped in the standard sterile fashion with a nonsterile tourniquet high on the thigh. Patient was placed on the green foam bolsters. A lateral post was placed at the level of the proximal thigh /trochanter area as a lateral post. Formal time-out procedure was performed confirming the patient's side and site of surgery and administration of appropriate preoperative antibiotics and implants were in the room accounted for. All were in agreement. Patient received a preoperative dose of tranexamic acid and then a 2nd dose at tourniquet release Patient was prepped and draped in the standard sterile fashion and the foot was placed into the leg diane. This was taken into high flexion and the incision was marked out over the anterior knee to the level of the medial tubercle tubercle. The Esmarch was then used for exsanguination and the tourniquet was inflated to 250 mmHg. Was made through the skin and subcutaneous tissue in high flexion this was then brought down into 30? of flexion for the medial parapatellar arthrotomy. A marker pen was used to sabina the arthrotomy site for later repair. Joint fluid was evacuated. The anterior osteophytes and soft t issues were removed. A minimal medial release was initially made along the medial proximal tibia with Bovie due to the patient's valgus pattern deformity. The patella was 1st cut using the saw sized and prepped and then subluxed throughout the case and protected. The leg was then taken into extension and the patella was everted and the patella was cut to accommodate the patellar button. This was sized to a 32 mm button for a 7.5 mm thickness to recreate the original dimensions of the patella. Poly was removed and the protector replaced and the patella was subluxed and the knee was taken back up into flexion and attention was returned to the femur. Then the rotational landmarks of [place] line and the trans epicondylar axis were marked on the femur with electrocautery. ACL and PCL were released. Then the Cori robotic pins were placed into the femur and tibia and the trackers were set up. Landmarks were established and the robotic planning was commenced. Plan was developed and improved and adjusted as necessary to create a balanced knee. Preoperative alignment was 7? of valgus. During the planning stage this was corrected to between a 1 degree of valgus and 0? alignment. The knee was found to be tight in extension laterally. ITB band was pie crusted. Range of motion and alignment were rechecked. Robotic system allowed us to place the femur in 4? of external rotation and adjust position of the components without notching. Once the plan was satisfactory was accepted and we moved onto the cutting. Plan was satisfactory the bur was used to remove the distal femur and then the 5 in 1 cutting block was applied complete the femur cuts. Attention was then turned to the tibia and the tibial resection was made in accordance with the robotic planning. The trials were placed. And the femoral notch was cut a standard fashion using Reamer then slap hammer. The knee was trialed and the checked. Knee was still little tight in flexion laterally and loose medially. Poly was upsized and additional pie crusting of the ITB band was completed until an acceptable balanced knee was obtained in 0?, 30? and throughout the range of motion. Range of motion 0-135 degrees was obtained. The rotation of the tibial trial was marked Bovie on the bone and checked with a long jordyn. Confirmed to be in line with the tibial crest and medial 3rd of the tuberosity and not in internal rotation. The tibia was then finished with a drill and flange cut and then The trial implants were removed. Then in extension the posterior capsule was injected with a mixture of 40 mL of 0.25% Marcaine and 20 mL of Exparel care to avoid excessive injection posterior laterally. The remainder of this was saved for the capsule and subcutaneous tissue and placed during cement curing. The wound and bone was irrigated with pulsatile lavage. This was then dried with a sponge. The components were verified and opened and the cement was mixed. Cement was applied to the components and then to the bone then the tibia was cemented in place 1st followed by the femur then the patella. Excess cement was removed. With care looking around the back of the knee. Remainder of the injection was injected around the capsule. trial poly was placed back in the leg was placed into extension for the patellar cementing. After this was cured approximately 15 minutes later and the dilute Betadine solution was placed for at least 3 minutes in the wound this was then irrigated out and the final poly was placed. This was a 15 mm poly. Final robotic alignment points were taken demonstrated final alignment 1 degree of valgus which is an improvement from 7? of valgus and a balanced knee with 1-2 mm throughout the range of motion. The tourniquet was released hemostasis was achieved. Final 1g of tranexamic acid was given IV at the time of tourniquet release. The capsule was closed with 1. Ethibond suture. Followed by a running Quill stitch. Subcutaneous layer was closed with 3-0 Vicryl suture. Skin was closed with a running V lock suture Stratafix Monocryl type suture and Dermabond. An Aquacel dressing was placed . An August wrap was applied. Anesthetic was terminated the patient was woken from anesthesia and taken to recovery room in good condition. There no immediate complications from this procedure. The patient will be maintained on a standard total knee replacement protocol with weight-bearing as tolerated. Complications: none Post-operative Condition: stable Disposition: PACU Plan for aftercare: Routine postoperative knee postoperative care including weightbear as tolerated, immediate range of motion. Aspirin 81 mg b.i.d. for 6 weeks for DVT prophylaxis postop. Follow up in Orthopedic surgery Clinic in 2 weeks.
[2024-01-18] MEDS: OXYCODONE IR 5 MG TABLET PO ×2 (11:07→11:51)
[2024-01-18] MEDS: KETOROLAC 30 MG/ML VIAL 15 MG IV (11:07)
[2024-01-18] MEDS: ONDANSETRON 4 MG/2 ML INJ IV (11:51)
--- NOTE | 2024-01-18 13:37 | SUR.PHASEII ---
See order for Tylenol from Dr Quigley to start if here over 6hours from 1st dose.
--- NOTE | 2024-01-18 13:40 | PT.IIE ---
Current Diagnoses Unilateral primary osteoarthritis, right knee (01/18/24) Surgery Performed Operation Date: 01/18/24 07:45 Actual Procedures p Total Knee Arthroplasty - Robot(Right) - Erin Quigley MD Surgical History (Last Reviewed 01/18/24 @ 07:18 by Erin Quigley MD) History of ankle surgery (2015) History of section History of hernia surgery Hx of bilateral cataract extraction Hx of dilation and curettage Hx of lithotripsy (2007) Hx of tonsillectomy Medical History (Last Reviewed 01/18/24 @ 07:18 by Erin Quigley MD) Edwards's esophagus (08/2023) Cellulitis Family history of malignant hyperthermia Genital herpes GERD (gastroesophageal reflux disease) History of COVID-19 (08/2023) History of kidney stones HLD (hyperlipidemia) Macular degeneration Osteoarthritis Osteopenia Physical Therapy Inpatient Evaluation/Re-Eval M1 PT/OT-IP Prior Functional Status Start: 01/18/24 13:42 Freq: NEEDED Status: Active Protocol: Document 01/18/24 13:40 DLM (Rec: 01/18/24 13:56 DLM [id number]) Medical Review Prior Functional Status Medical History Reviewed Yes Diet/Fluid Consistency Regular Communication WFL Mobility and Gait Independent, community distances Activities of Daily Living and IADL's Independent Social History Household Members spouse Living Arrangements House Number of Floors (Floors) Two Floors Number of Stairs To Enter/Railing? 3 steps without rail Home Environment Standard Height Toilet,Walk in Shower Home Equipment Front Wheel Walker,Straight Cane,Raised Toilet Seat w/ Armrests,Shower Seat with Backrest Employment Status Retired M2 PT-IP Current Condition Start: 01/18/24 13:42 Freq: NEEDED Status: Active Protocol: Document 01/18/24 13:40 DLM (Rec: 01/18/24 13:56 DLM [id number]) Physical Therapy Current Condition Current Condition Evaluation Date 01/18/24 Treatment Diagnosis right total knee arthroplasty, impaired gait Onset Date 01/18/24 M3 PT-IP Subjective Start: 01/18/24 13:42 Freq: NEEDED Status: Active Protocol: Document 01/18/24 13:40 DLM (Rec: 01/18/24 13:56 DLM [id number]) Subjective Physical Therapy Visit Type Type Initial Evaluation Visit Start Time 12:45 Visit Stop Time 13:40 Number of PRINCIPAL TRAINER Visits 0 Physical Therapy Visit Comments Patient Comments She feels safe to go home today. She reports a neighbor is coming over to help get her into house. Patient Goals Discharge home with Spouse Therapy Pain Assessment Pain When Pain Assessed During Mobility Pain Present Pain Present Pain Reported Location right knee Intensity 8 Scale Used Numeric (0 - 10) Description Aching,Tender,With Movement Pain Behaviors Facial Grimacing,Guarding Pain Management Techniques Apply Cold,Elevation,Timing of Activity with Medications M4 PT-IP Mobility and Gait Start: 01/18/24 13:42 Freq: NEEDED Status: Active Protocol: Document 01/18/24 13:40 DLM (Rec: 01/18/24 13:56 DLM [id number]) PT-Bed Mobility Assessment Supine to Sit Supine to Sit Independent Sit to Supine Sit to Supine Independent Scooting Scooting to Edge of Bed Independent Scooting Up and Down in Bed Independent PT-Transfer Assessment Sit to and From Stand Sit to and from Stand Standby Assistance,Use of Upper Extremities Equipment Transfer Assistive Device Gait Belt,Front Wheeled Walker Transfers Transfer Destination Chair,Toilet Transfer Technique Stand Step Pivot Transfer Ability Level of Assist Standby Assistance,Use of Upper Extremities Comments Mobility Comments she needs reminder to push up to standing with UE's and to control descent stand to sit to avoid increased knee pain Gait Assessment Gait Gait Assistance Required: Standby Assistance Distance (Feet) 120 Able to Maintain Weight Bearing Status Yes During Gait Assistive Devices Assistive Device Gait Belt,Front Wheeled Walker Gait Deviations General Gait Pattern Antalgic Factors Limiting Gait Function Factors Limiting Gait Function Decreased Activity Tolerance, Decreased Strength,Limited Range of Motion,Pain,Poor Balance Comments Gait Comments she demonstrates safe use of FWW for gait, good use of UE's on FWW to manage pain in right LE with weight bearing Stair Climbing Assessment Evaluation Level of Assist On Stairs Standby Assistance Devices Stair Climbing Assistive Devices Left Railing,Right Railing Technique/Endurance Stair Climbing Direction Ascend and Descend Stair Climbing Technique Step to Step Number of Steps Climbed 3 Query Text: Stair Climbing Set # Repetitions (reps) 1 Comments Stair Climbing Comments educated pt to have a person on each side or cane and a person so she has support on each side going up her steps at home that have no rail PT-Balance Assessment Sitting Balance and Reactions Static Sitting Balance Ability Normal Dynamic Sitting Balance Ability Normal Standing Balance and Reactions Static Standing Balance Ability Good Dynamic Standing Balance Ability Good Device Used FWW M5 PT-IP Objective Assessments Start: 01/18/24 13:42 Freq: NEEDED Status: Active Protocol: Document 01/18/24 13:40 DLM (Rec: 01/18/24 13:56 DL [id number]) Orientation Orientation/Cognition Level of Alertness Alert Orientation Name,Age,Birthday,Month,Date, Year,Day of Week,Place, Situation Language Function Ability No Deficits Noted Safety Awareness Understands Safety Issues Memory Description No Deficits Noted Comments intermittent episodes of nausea during this visit that resolved with short rest break in supine Gross Range of Motion Upper Extremity ROM Assessment Within Functional Limits Lower Extremity ROM Assessment Right Impaired Impairments knee is 10-85 degrees Strength Upper Extremity Strength Assessment Within Functional Limits Lower Extremity Strength Assessment Right Impaired Hip able to lift LE off bed with mild extensor lag Knee knee ext 2+/5 Ankle DF 4+/5 Comments Strength Comments pain right knee limiting functional strength Coordination Assessment Gross Coordination Gross Coordination WNL Sensation Assessment Comments Sensation Comments she reports numnbess in groin area when toileting Muscle Tone Muscle Tone WNL Yes M6 PT-IP Treatment Start: 01/18/24 13:42 Freq: NEEDED Status: Active Protocol: Document 01/18/24 13:40 DLM (Rec: 01/18/24 13:56 [facility] [id number]) Physical Therapy Treatment Exercises Exercises Ankle Pumps,Quad Sets,Heel Slides,Straight Leg Raises, Short Arc Quads,Passive Knee Extension Hang,Seated Knee Flexion/Extension Education Education Provided Precautions,Weight Bearing Status,Post-Op Packet,Safety Other Treatments Other Treatment Performed reviewed HEP with written instructions, demonstrations and pt performing reps to have good knowledge of HEP at discharge M7 PT-IP Assessment and Plan Start: 01/18/24 13:42 Freq: NEEDED Status: Active Protocol: Document 01/18/24 13:40 DLM (Rec: 01/18/24 13:56 [facility] [id number]) PT Summary Assessment and Plan Potential Rehabilitation Potential Excellent Status of Condition at Evaluation Evolving Summary Impairments Pain,ROM,Strength,Balance, Transfers,Gait,Activity Tolerance Progress Towards Goals Safe For Discharge Assessment Summary Apolonia is alert and resting on stretcher in PACU. She was able to ambulate with the FWW to the toilet where she urinated and had small BM. She demonstrates safe use of the FWW and good ability to use UE support to manage right knee pain with weight bearing. Pt was able to go up and down 3 steps which she will need to do to get into her house. She plans to stay on main level of her house at discharge. She reports having a supportive Spouse to assist at discharge. He was not present for therapy session. Apolonia had intermittent nausea during therapy session that improved with rest break. Her nurse was notified of her nausea. Patient appears safe to discharge home when medically cleared. Anticipate discharge home from PACU today. Frequency of Treatment Frequency Of Treatment Discharge Treatment Plan Other Recommendations and Next Treatment training completed this visit Focus Weight Bearing Status Weight Bearing Status Weight Bear as Tolerated Allowed Weight Bearing Amount (enter % right LE or #) (%) Recommendations To Nursing Amount of Assist Needed Standby Assistance Discharge Recommendations PT Discharge Recommendations Home with Assistance, Outpatient PT Other Discharge Recommendations has out-pt PT scheduled Transportation Needs at Discharge Private Vehicle
--- NOTE | 2024-01-18 13:40 | SUR.PHASEII ---
Pt up to BR and then upstairs with PT for stair training. Pt steady on feet. Ok for discharge per PT.
[2024-01-18] MEDS: ACETAMINOPHEN 325 MG TABLET 650 MG PO (13:52)
== END 2024-01-18 14:30 | disposition home or self-care (01) ==
LOC: OR 06:07 → AC 06:17
PROVIDERS: PCP Nurse Practitioner Family; Referring Provider Orthopaedic Surgery Foot and Ankle Surgery; Visit Provider Orthopaedic Surgery Foot and Ankle Surgery
PROC: 0SRC0JZ Replacement of Right Knee Joint with Synthetic Substitute, Open Approach (ICD-10-PCS; CPT 27447; principal; 2024-01-18 07:45)
DX: M17.11 Unilateral primary osteoarthritis, right knee (principal); G89.18 Other acute postprocedural pain
CPT/HCPCS: 27447; 64450; 73560; 97110; 97162; C1776; C9290; J0171; J0690; J1100; J1885; J2405; J2704